=== PATIENT | female | born 1980 | race African-American/Black ===

== ENCOUNTER 2017-12-19 15:26 | Outpatient (CLI) | payer OTHER ==
--- NOTE | 2017-12-09 16:20 | RAD ---
FOUR VIEWS OF THE LUMBAR SPINE: DATE: 12/09/2017. COMPARISON: None. HISTORY: Lumbar radiculopathy. FINDINGS: Neutral, flexion, and extension lateral imaging demonstrates normal vertebral body height and alignme nt with no anterolisthesis or retrolisthesis seen. The lumbar pedicles appear intact on frontal imag ing. No acute osseous abnormality noted. IMPRESSION: No acute findings. POS: ANA
--- NOTE | 2017-12-19 18:09 | MRI ---
MRI LUMBAR SPINE WITHOUT CONTRAST: HISTORY: Difficulty walking, sitting, or standing for a long period of time. Bilateral lower extremity pain a nd weakness. COMPARISON: None. TECHNIQUE: An MRI of the lumbar spine is performed without intravenous Gadolinium administration. Multisequenti al, multiplanar imaging is performed. FINDINGS: Mild straightening of normal lumbar lordosis. Lumbar spine vertebral body height is maintained. The re is no fracture. No spondylolisthesis or spondylolysis. No STIR signal hyperintensity to suggest vertebral body edema or ligamentous injury. Symmetric signal intensity of the psoas muscles. Appropriate signal intensity of the visualized alfred d organs. The conus medullaris terminates at the superior aspect of L1. T12-L1: Adequate disk hydration. No significant central canal stenosis. The neural foramina are pa tent. L1-L2: Adequate disk hydration. No significant central canal stenosis. The neural foramina are pat ent. L2-L3: Adequate disk hydration. No significant central canal stenosis. The neural foramina are pat ent. L3-L4: Adequate disk hydration. No significant central canal stenosis. The neural foramina are pat ent. L4-L5: Adequate disk hydration. No significant posterior disk abnormality. No significant central canal stenosis. The neural foramina are patent. L5-S1: Adequate disk hydration. No significant central canal stenosis. The neural foramina are pat ent. IMPRESSION: No significant central canal stenosis or foraminal narrowing. POS: ANA
== END 2017-12-19 15:27 | disposition home or self-care (01) ==
LOC: TBSIIMAG 15:26
PROVIDERS: ATTEND Surgery
DX: M54.16 Radiculopathy, lumbar region (principal)
CPT/HCPCS: 72110; 72148